=== PATIENT | male | born 1985 | race Caucasian/White ===

== ENCOUNTER 2020-06-21 12:07 | Outpatient (REF) | payer MEDICAID, SELFPAY ==
[2020-06-21 15:41] LABS: HCT 43.8 % (40.0-50.0); HGB 15.4 g/dL (13.5-17.5); MCH 29.5 pg (27.0-33.0); MCHC 35.2 % (32.0-36.0); MCV 83.9 fL (80-95); Platelet Count 202 10^3/uL (130-400); RBC 5.22 10^6/uL (4.36-5.78); RDW 11.8 % (11.8-14.1); RDW-SD 35.5 fL; WBC 10.89 10^3/uL (4.4-10.8)
[2020-06-21 15:50] LABS: BUN 9 mg/dL (7-18); CREATININE 0.8 mg/dL (0.70-1.30); Calcium 8.8 mg/dL (8.5-10.1); Chloride 103 mmol/L (98-107); Cholesterol 176 mg/dL (<200); Glucose 110 mg/dL (74-106); HDL Cholesterol 26 mg/dL (40-60); Magnesium 1.7 mg/dL (1.8-2.4); Potassium 3.7 mmol/L (3.5-5.1); Sodium 141 mmol/L (136-145); TSH 2.01 uIU/mL (0.36-3.74); Triglyceride 462 mg/dL (<150)
[2020-06-21 16:04] LABS: LDL CHOLESTEROL 91 mg/dL (<100)
[2020-06-27 13:03] LABS: Methylphenidate 648 ng/mL; Ritalinic Acid >10000 ng/mL
== END 2020-06-21 12:08 | disposition home or self-care (01) ==
LOC: NCHCN 12:07
PROVIDERS: PCP Physician Assistant; Visit Provider Nurse Practitioner Family
DX: F90.9 Attention-deficit hyperactivity disorder, unspecified type (principal); Z51.81 Encounter for therapeutic drug level monitoring; Z13.220 Encounter for screening for lipoid disorders; Z13.29 Encounter for screening for other suspected endocrine disorder; Z00.00 Encounter for general adult medical examination without abnormal findings
CPT/HCPCS: 80048; 80061; 80360; 83721; 85027; 83735; 84443

== ENCOUNTER 2021-12-25 16:21 | Outpatient (REF) | payer MEDICAID, SELFPAY ==
[2021-12-30 15:25] LABS: Methylphenidate 344 ng/mL (Cutoff: 10); Ritalinic Acid 11589 ng/mL (Cutoff: 50)
== END 2021-12-25 16:22 | disposition home or self-care (01) ==
LOC: NCHCN 16:21
PROVIDERS: PCP Nurse Practitioner Family; Visit Provider Nurse Practitioner Family
DX: F90.9 Attention-deficit hyperactivity disorder, unspecified type (principal)
CPT/HCPCS: 80360

== ENCOUNTER 2022-11-29 13:15 | Outpatient (REF) | payer MEDICAID, SELFPAY ==
--- OUTSIDE RECORDS SUMMARY | 2022-11-29 13:17 | XMS_ITS | Continuity of Care Document ---
Author Name Unknown Organization [facility] Address [address] [place] [address] Encounter [facility] Date(s): 08/28/22 - 08/28/[address] [facility] [address] [place] [address] Encounter Diagnosis Right-sided back pain(Discharge Diagnosis) - 08/28/22 Discharge Disposition: Home or Self Care Attending Physician: Mikey Arnold MD Admitting Physician: Mikey Arnold MD Allergies, Adverse Reactions, Alerts Substance Reaction Severity Status sulfa drugs Unknown Active Functional Status 08/28/22 Family Member Travel History No recent t ravel Recent Travel History No recent travel Other exposure to Infectious Disease Non e Medications !-Armstrong 5 mg-325 mg oral tablet 1 tab, Oral, every 4 hr, PRN as needed for pain, X 2 days, # 5 tab, 0 Refill(s), 08/30/22 16:05:00 EDT, Pharmacy: [id number], 185, cm, 08/28/22 13:07:00 EDT, Height/Length Dosing, 93, kg, 08/28/22 13:07:00 EDT, Weight Dosing Start Date: 08/28/22 Stop Date: 08/30/22 Status: Ordered !-Robaxin 500 mg oral tablet 1,000 mg = 2 tab, Oral, QID, X 10 days, # 80 tab, 0 Refill(s), 09/05/22 18:13:00 EDT, Pharmacy: [id number], 185, cm, 08/26/22 15:57:00 EDT, Height/Length Dosing, 93, kg, 08/26/22 15:57:00 EDT,Weight Dosing Start Date: 08/26/22 Stop Date: 09/05/22 Status: Ordered Medrol Dosepak 4 mg oral tablet 1 packets, Oral, Daily, as directed on package labeling, X 6 days, # 21 tab, 0 Refill(s), 09/01/22 18:12:00 EDT, Pharmacy: [id number], 185, cm, 08/26/22 15:57:00 EDT, Height/Length Dosing, 93,kg, 08/26/22 15:57:00 EDT, Weight Dosing Start Date: 08/26/22 Stop Date: 09/01/22 Status: Ordered Ritalin 20 mg oral tablet 20 mg = 1 tab, Oral, TID, 0 Refill(s) Start Date: 11/15/21 Status: Ordered Results Laboratory List Name Date Urinalysis with Micro if Indicated and C ulture if Indicated 08/28/22 CBC w/ Diff 08/28/22 Comprehensive Metabolic Panel 08/28/22 Lipase Level 08/28/22 Automated Diff 08/28/22 Most recent to oldest [Reference Range]: 1 WBC [5.0-10.0 x10^3/mcL] 14.3 x10^3/mcL *HI* (08/28/22 1:27 PM) RBC [4.6-6.0 x10^6/mcL] 5.0 x10^6/mcL (08/28/22 1:27 PM) Neutro Auto [40.0-75.0 %] 69.2 % (08/28/22 1:27 PM) Lymph Auto [20.0-50.0 %] 21.3 % (08/28/22 1:27 PM) [place] Auto [2.0-15.0 %] 8.3 % (08/28/22 1:27 PM) Basophil Auto [0.0-1.0 %] 0.1 % (08/28/22 1:27 PM) BUN [7-18 mg/dL] 14 mg/dL (08/28/22 1:27 PM) UA Color Yellow (08/28/22 2:13 PM) Glucose Level [74-106 mg/dL] 94 mg/dL (08/28/22 1:27 PM) Potassium Level [3.5-5.1 mmol/L] 3.6 mmo l/L (08/28/22 1:27 PM) MCV [80.0-96.0 fL] 85.7 fL (08/28/22 1:27 PM) UA Urobilinogen Normal (08/28/22 2:13 PM) UA Bili [Negative] Negative (08/28/22 2:13 PM) UA Ketones Negative (08/28/22 2:13 PM) AST [15-37 unit/L] 20 unit/L (08/28/22 1:27 PM) ALT [16-63 unit/L] 43 unit/L (08/28/22 1:27 PM) MCHC [31.0-35.0 g/dL] 35.0 g/dL (08/28/22 1: PM) Sodium Level [136-145 mmol/L] 140 mmol/L (08/28/22 1: PM) UA Leuk Est Negative (08/28/22 2:13 PM) UA Nitrite Negative (08/28/22 2:13 PM) UA Glucose [Negative] Negative (08/28/22 2: PM) Hct [41.0-51.0 %] 43.2 % (08/28/22: PM) Lipase Level [16-77 unit/L] 27 unit/L (08/28/22: PM) Calcium Level [8.5-10.1 mg/dL] 9.1 mg/dL (08/28/22 1: PM) Albumin Level [3.4-5.0 g/dL] 4.1 g/dL (08/28/22 1: PM) Protein Total [6.4-8.2 g/dL] 7.6 g/dL (08/28/22 1:27 PM) UA Protein Negative (08/28/22 2:13 PM) MCH [26.0-32.0 pg] 30.0 pg (08/28/22: PM) Neutro Absolute 9.9 x10^3/mcL *NA* (08/28/22 1: PM) Bilirubin Total [0.2-1.0 mg/dL] 0.5 mg/d L (08/28/22 1:27 PM) Hgb [14.0-18.0 g/dL] 15.1 g/dL (08/28/22 1:27 PM) Alk Phos [46-146 unit/L] 87 unit/L (08/28/22 1:27 PM) UA Blood Negative (08/28/22 2:13 PM) UA Spec Grav 1.020 *NA* (08/28/22 2:13 PM) Platelets [130-450 x10^3/mcL] 230 x10^3/ mcL (08/28/22 1:27 PM) CO2 [21-32 mmol/L] 30 mmol/L (08/28/22 1:27 PM) UA pH 6.5 *NA* (08/28/22 2:13 PM) eGFR Non-AA [>=60] 112 (08/28/22 1:27 PM) eGFR AA [>=60] 112 (08/28/22 1: PM) UA Appear Clear (08/28/22 2:13 PM) Chloride Level [98-107 mmol/L] 103 mmol/ L (08/28/22 1: PM) RDW-CV [11.5-17.0 %] 11.9 % (08/28/22 1: PM) Imm Gran Auto [0.0-0.9 %] 0.4 % (08/28/22 1: PM) Creatinine Level [0.70-1.30 mg/dL] 0.91 mg/dL (08/28/22 1: PM) Eos, Auto [1.0-6.0 %] 0.7 % *LOW* (08/28/22 1:27 PM) Vital Signs Most recent to oldest [Reference Range]: 1 2 3 Temperature Temporal Artery [36-38 Deg C] 36.8 Deg C (08/28/22 1:01 PM) Peripheral Pulse Rate [60-100 bpm] 70 bpm (08/28/22 3:59 PM) 75 bpm (08/28/22 2:51 PM) 76 bpm (08/28/22 1:01 PM) Respiratory Rate [12-24 br/min] 20 br/min (08/28/22 2:51 PM) 10 br/min *LOW* (08/28/22 1:01 PM) Blood Pressure [90-140/60-90 mmHg] 132/80mmHg (08/28/22 3:59 PM) 154/84mmHg *HI* (08/28/22 2:51 PM) 126/86mmHg (08/28/22 1:01 PM) Weight Dosing 93.00 kg (08/28/22 1:07 PM) Weight Estimated 93.00 kg (08/28/22 1:01 PM) Height/Length Dosing 185.000 cm (08/28/22 1:07 PM) Height/Length Estimated 185.000 cm (08/28/22 1:01 PM) Social History Social History Type Response Tobacco Never tobacco user T obacco Use:. Sex Male Hospital Discharge Instructions Patient Education 08/28/2022 15:04:21 Acute Back Pain, Adult Acute Back Pain, Adult Acute back pain is sudden and usually short-lived. It is often caused by an injury to the muscles and tissues in the back. The injury may result from: ??? A muscle, tendon, or ligament getting overstretched or torn. Ligaments are tissues that connectbones to each other. Lifting something improperly can cause a back strain. ??? Wear and tear (degeneration) of the spinal disks. Spinal disks are circular tissue that providecushioning between the bones of the spine (vertebrae). ??? Twisting motions, such as while playing sports or doing yard work. ??? A hit to the back. ??? Arthritis. You may have a physical exam, lab tests, and imaging tests to find the cause of your pain. Acute back pain usually goes away with rest and home care. Follow these instructions at home: Managing pain, stiffness, and swelling ??? Take dvoo-yxz-kbzkntw and prescription medicines only as told by your health care provider. Treatment may include medicines for pain and inflammation that are taken by mouth or applied to the skin, or muscle relaxants. ??? Your health care provider may recommend applying ice during the first 24???48 hours after your pain starts. To do this: ??? Put ice in a plastic bag. ??? Place a towel between your skin and the bag. ??? Leave the ice on for 20 minutes, 2???3 times a day. ??? Remove the ice if your skin turns bright red. This is very important. If you cannot feel pain, heat, or cold, you have a greater risk of damage to the area. ??? If directed, apply heat to the affected area as often as told by your health care provider. Usethe heat source that your health care provider recommends, such as a moist heat pack or a heating pad. ??? Place a towel between your skin and the heat source. ??? Leave the heat on for 20???30 minutes. ??? Remove the heat if your skin turns bright red. This is especially important if you are unable to feel pain, heat, or cold. You have a greater risk of getting burned. Activity ??? Do not stay in bed. Staying in bed for more than 1???2 days can delay your recovery. ??? Sit up and stand up straight. Avoid leaning forward when you sit or hunching over when you stand. ??? If you work at a desk, sit close to it so you do not need to lean over. Keep your chin tucked in. Keep your neck drawn back, and keep your elbows bent at a 90-degree angle (right angle). ??? Sit high and close to the steering wheel when you drive. Add lower back (lumbar) support to your car seat, if needed. ??? Take short walks on even surfaces as soon as you are able. Try to increase the length of time you walk each day. ??? Do not sit, drive, or cryptographic machine operator one place for more than 30 minutes at a time. Sitting or standing for long periods of time can put stress on your back. ??? Do not drive or use heavy machinery while taking prescription pain medicine. ??? Use proper lifting techniques. When you bend and lift, use positions that put less stress on your back: ??? Bend your knees. ??? Keep the load close to your body. ??? Avoid twisting. ??? Exercise regularly as told by your health care provider. Exercising helps your back heal fasterand helps prevent back injuries by keeping muscles strong and flexible. ??? Work with a physical therapist to make a safe exercise program, as recommended by your health care provider. Do any exercises as told by your physical therapist. Lifestyle ??? Maintain a healthy weight. Extra weight puts stress on your back and makes it difficult to havegood posture. ??? Avoid activities or situations that make you feel anxious or stressed. Stress and anxiety increase muscle tension and can make back pain worse. Learn ways to manage anxiety and stress, such as through exercise. General instructions ??? Sleep on a firm mattress in a comfortable position. Try lying on your side with your knees slightly bent. If you lie on your back, put a pillow under your knees. ??? Keep your head and neck in a straight line with your spine (neutral position) when using electronic equipment like smartphones or pads. To do this: ??? Raise your smartphone or pad to look at it instead of bending your head or neck to look down. ??? Put the smartphone or pad at the level of your face while looking at the screen. ??? Follow your treatment plan as told by your health care provider. This may include: ??? Cognitive or behavioral therapy. ??? Acupuncture or massage therapy. ??? Meditation or yoga. Contact a health care provider if: ??? You have pain that is not relieved with rest or medicine. ??? You have increasing pain going down into your legs or buttocks. ??? Your pain does not improve after 2 weeks. ??? You have pain at night. ??? You lose weight without trying. ??? You have a fever or chills. ??? You develop nausea or vomiting. ??? You develop abdominal pain. Get help right away if: ??? You develop new bowel or bladder control problems. ??? You have unusual weakness or numbness in your arms or legs. ??? You feel faint. These symptoms may represent a serious problem that is an emergency. Do not wait to see if the symptoms will go away. Get medical help right away. Call your local emergency services (911 in the [place] Do not drive yourself to the hospital. Summary ??? Acute back pain is sudden and usually short-lived. ??? Use proper lifting techniques. When you bend and lift, use positions that put less stress on your back. ??? Take njgp-ddd-jenczys and prescription medicines only as told by your health care provider, andapply heat or ice as told. This information is not intended to replace advice given to you by your health care provider. Make sure you discuss any questions you have with your health care provider. Document Revised: 07/07/2021 Document Reviewed: 07/07/2021 [employer] Patient Education ?? 2021 [employer]. Follow Up Care 08/28/2022 13:01:20 With:Follow up with primary care provider Address: When:24 Hours Emergency department Discharge instructions * Mikey Arnold MD: PERFORM Event Display: ED Discharge Information Authored Date: [id number] ALBERTINA WATKINS :1985 Age:37 years Sex:Male Visit Date:08/28/2022 Discharge Instructions We would like to thank you for allowing us to assist you with your healthcare needs. The following includes patient education materials and information regarding your injury/illness. Diagnosis from Today's Visit Right-sided back pain Discharge Vitals Temperature??(Temporal Artery) 98.2 ??F (36.8 ??C) Heart Rate??(Peripheral) 70 Respiratory Rate?? 20 Blood Pressure?? 132/80?? Height?? 72.83 in (185.000 cm) Weight??(Estimated) 205.06 lb (93.00 kg) Allergies sulfa drugs What to Do Next Instructions from Your Care Team Thank you for coming to the emergency department today, it has been our pleasure to take care of you. ??As we discussed, thankfully the CT on your abdomen/pelvis did not show any kidney issues??or other??problems with your internal organs. ??The??MRI of your lumbar spine did show some significant degenerative changes and we would recommend??continuing the Medrol Dosepak, muscle relaxer for this and following up with your regular doctor.?? Please return to the emergency department if you have any new or concerning symptoms including any fever, any new numbness, tingling, weakness, trouble withurine or bowel, or if you have any other symptoms or concerns. You Need to Schedule the Following Appointments Follow Up with??Follow up with primary care provider When:??Within 24 Hours You were treated today on an emergency basis; it may be clifton to contact your primary care provider to notify them of your visit today. You may have been referred to your regular doctor or a specialist, please follow up as instructed. If your condition worsens or you can't get in to see the doctor, contact the Emergency Department. Medications What How Much When Why Instructions Next Dose New HYDROcodone-acetaminophen (!- Armstrong 5 mg-325 mg oral tablet) 1 tab Oral (given by mouth) Every 4 hours as needed for as needed for pain Right-sided back pain Duration: 2 Days Pickup at [facility] Unchanged methocarbamol (!-Robaxin 500 mg oral tablet) 2 tab Oral (given by mouth) 4 times a day Acute lumbar back pain Duration: 10 Days Unchanged methylphenidate (Ritalin 20 mg oral tablet) 1 tab Oral (given by mouth) 3 times a day Unchanged methylPREDNISolone (Medrol Dosepak 4 mg oral tablet) 1 packets Oral (given by mouth) Every day Acute lumbar back pain Duration: 6 Days as directed on package labeling ?? Pharmacy Information [id number]: [address], [place] [id number] [phone] Education Materials Acute Back Pain, Adult Acute back pain is sudden and usually short-lived. It is often caused by an injury to the muscles and tissues in the back. The injury may result from: ? A muscle, tendon, or ligament getting overstretched or torn. Ligaments are tissues that connect bones to each other. Lifting something improperly can cause a back strain. ? Wear and tear (degeneration) of the spinal disks. Spinal disks are circular tissue that provide cushioning between the bones of the spine (vertebrae). ? Twisting motions, such as while playing sports or doing yard work. ? A hit to the back. ? Arthritis. You may have a physical exam, lab tests, and imaging tests to find the cause of your pain. Acute back pain usually goes away with rest and home care. Follow these instructions at home: Managing pain, stiffness, and swelling ? Take ogjh-zep-sulaqjt and prescription medicines only as told by your health care provider. Treatment may include medicines for pain and inflammation that are taken by mouth or applied to the skin, or muscle relaxants. ? Your health care provider may recommend applying ice during the first 24???48 hours after your painstarts. To do this: ? Put ice in a plastic bag. ? Place a towel between your skin and the bag. ? Leave the ice on for 20 minutes, 2???3 times a day. ? Remove the ice if your skin turns bright red. This is very important. If you cannot feel pain, heat, or cold, you have a greater risk of damage to the area. ? If directed, apply heat to the affected area as often as told by your health care provider. Use theheat source that your health care provider recommends, such as a moist heat pack or a heating pad. ? Place a towel between your skin and the heat source. ? Leave the heat on for 20???30 minutes. ? Remove the heat if your skin turns bright red. This is especially important if you are unable to feel pain, heat, or cold. You have a greater risk of getting burned. Activity ? Do not stay in bed. Staying in bed for more than 1???2 days can delay your recovery. ? Sit up and stand up straight. Avoid leaning forward when you sit or hunching over when you stand. ? If you work at a desk, sit close to it so you do not need to lean over. Keep your chin tucked in. Keep your neck drawn back, and keep your elbows bent at a 90-degree angle (right angle). ? Sit high and close to the steering wheel when you drive. Add lower back (lumbar) support to your car seat, if needed. ? Take short walks on even surfaces as soon as you are able. Try to increase the length of time you walk each day. ? Do not sit, drive, or cryptographic machine operator one place for more than 30 minutes at a time. Sitting or standing for long periods of time can put stress on your back. ? Do not drive or use heavy machinery while taking prescription pain medicine. ? Use proper lifting techniques. When you bend and lift, use positions that put less stress on your back: ? Bend your knees. ? Keep the load close to your body. ? Avoid twisting. ? Exercise regularly as told by your health care provider. Exercising helps your back heal faster andhelps prevent back injuries by keeping muscles strong and flexible. ? Work with a physical therapist to make a safe exercise program, as recommended by your health care provider. Do any exercises as told by your physical therapist. Lifestyle ? Maintain a healthy weight. Extra weight puts stress on your back and makes it difficult to have good posture. ? Avoid activities or situations that make you feel anxious or stressed. Stress and anxiety increase muscle tension and can make back pain worse. Learn ways to manage anxiety and stress, such as through exercise. General instructions ? Sleep on a firm mattress in a comfortable position. Try lying on your side with your knees slightlybent. If you lie on your back, put a pillow under your knees. ? Keep your head and neck in a straight line with your spine (neutral position) when using electronicequipment like smartphones or pads. To do this: ? Raise your smartphone or pad to look at it instead of bending your head or neck to look down. ? Put the smartphone or pad at the level of your face while looking at the screen. ? Follow your treatment plan as told by your health care provider. This may include: ? Cognitive or behavioral therapy. ? Acupuncture or massage therapy. ? Meditation or yoga. Contact a health care provider if: ? You have pain that is not relieved with rest or medicine. ? You have increasing pain going down into your legs or buttocks. ? Your pain does not improve after 2 weeks. ? You have pain at night. ? You lose weight without trying. ? You have a fever or chills. ? You develop nausea or vomiting. ? You develop abdominal pain. Get help right away if: ? You develop new bowel or bladder control problems. ? You have unusual weakness or numbness in your arms or legs. ? You feel faint. These symptoms may represent a serious problem that is an emergency. Do not wait to see if the symptoms will go away. Get medical help right away. Call your local emergency services (911 in the [place] Do not drive yourself to the hospital. Summary ? Acute back pain is sudden and usually short-lived. ? Use proper lifting techniques. When you bend and lift, use positions that put less stress on your back. ? Take xgke-ncp-iyixiga and prescription medicines only as told by your health care provider, and apply heat or ice as told. This information is not intended to replace advice given to you by your health care provider. Make sure you discuss any questions you have with your health care provider. Document Revised: 07/07/2021 Document Reviewed: 07/07/2021 [employer]vier Patient Education ?? 2021 [employer] Tests Performed Medications and Immunizations Administered Given morphine, 4 mg, IV Push morphine, 4 mg, IV Push Lab Test Name Test Result Date/Time WBC 14.3 x10^3/mcL 08/28/2022 13:27 EDT RBC 5.0 x10^6/mcL 08/28/2022 13:27 EDT Hgb 15.1 g/dL 08/28/2022 13:27 EDT Hct 43.2 % 08/28/2022 13:27 EDT MCV 85.7 fL 08/28/2022 13:27 EDT MCH 30.0 pg 08/28/2022 13:27 EDT MCHC 35.0 g/dL 08/28/2022 13:27 EDT RDW-CV 11.9 % 08/28/2022 13:27 EDT Platelets 230 x10^3/mcL 08/28/2022 13:27 EDT Neutro Auto 69.2 % 08/28/2022 13:27 EDT Lymph Auto 21.3 % 08/28/2022 13:27 EDT [place] Auto 8.3 % 08/28/2022 13:27 EDT Eos, Auto 0.7 % 08/28/2022 13:27 EDT Basophil Auto 0.1 % 08/28/2022 13:27 EDT Imm Gran Auto 0.4 % 08/28/2022 13:27 EDT Neutro Absolute 9.9 x10^3/mcL 08/28/2022 13:27 EDT Sodium Level 140 mmol/L 08/28/2022 13:27 EDT Potassium Level 3.6 mmol/L 08/28/2022 13:27 EDT Chloride Level 103 mmol/L 08/28/2022 13:27 EDT CO2 30 mmol/L 08/28/2022 13:27 EDT Alk Phos 87 unit/L 08/28/2022 13:27 EDT AST 20 unit/L 08/28/2022 13:27 EDT ALT 43 unit/L 08/28/2022 13:27 EDT BUN 14 mg/dL 08/28/2022 13:27 EDT Glucose Level 94 mg/dL 08/28/2022 13:27 EDT Creatinine Level 0.91 mg/dL 08/28/2022 13:27 EDT eGFR AA 112 08/28/2022 13:27 EDT eGFR Non-AA 112 08/28/2022 13:27 EDT Calcium Level 9.1 mg/dL 08/28/2022 13:27 EDT Protein Total 7.6 g/dL 08/28/2022 13:27 EDT Albumin Level 4.1 g/dL 08/28/2022 13:27 EDT Bilirubin Total 0.5 mg/dL 08/28/2022 13:27 EDT Lipase Level 27 unit/L 08/28/2022 13:27 EDT UA Color YELLOW. 08/28/2022 14:13 EDT UA Appear CLEAR. 08/28/2022 14:13 EDT UA Glucose NEGATIVE 08/28/2022 14:13 EDT UA Bili NEGATIVE 08/28/2022 14:13 EDT UA Ketones NEGATIVE 08/28/2022 14:13 EDT UA Spec Grav 1.020 08/28/2022 14:13 EDT UA Blood NEGATIVE 08/28/2022 14:13 EDT UA pH 6.5 08/28/2022 14:13 EDT UA Protein NEGATIVE 08/28/2022 14:13 EDT UA Urobilinogen 0.2 Uro 08/28/2022 14:13 EDT UA Nitrite NEGATIVE 08/28/2022 14:13 EDT UA Leuk Est NEGATIVE 08/28/2022 14:13 EDT Patient/Orthopaedic Doctor Signature Patient Name:ALBERTINA WATKINS I have received this information and my questions have been answered. Patient/Orthopaedic Doctor Name: Patient/Orthopaedic Doctor Signature: Relationship to Patient: Witness Name/Signature: Date: Electronically Signed on: 08/28/2022 16:06 EDTSigned by:MARITO Emergency department Note * Bianca Perez M: PERFORM Event Display: ED Notes Authored Date: [id number] * Lynda Lewis M: PERFORM Event Display: ED Notes Authored Date: [id number] Patient Care team information Care Team Personnel Name: Danni Yung Position: Nurse Member Role: ED Nurse Name: Mikey Arnold MD Position: Physician Member Role: Attending Physician Address: Address: [address] [place] [address] [place] [address] [place] Care Team Related Persons Name: LILLIAN WATKINS Address: Home [address] [facility] [place] [phone] Name: JUNE, MARIS Address: Home [address] [place], [place] [phone]
--- OUTSIDE RECORDS SUMMARY | 2022-11-29 13:17 | XMS_ITS | Continuity of Care Document ---
Author Name Unknown Organization [facility] Address [address] [place] [address] Care Team Providers Care Pitting Machine Operator Name Role Phone Jessica Kamara Primary Care Physician Encounter [facility] Date(s): 09/14/22 - 09/14/[address] [address] Discharge Disposition: Home or Self Care Attending Physician: Mikey Arnold MD Admitting Physician: Mikey Arnold MD Referring Physician: Mikey Arnold MD Allergies, Adverse Reactions, Alerts Substance Reaction Severity Status sulfa drugs Unknown Active Assessment and Plan Extracted from: Title:Clinical Document Author:Bernadine Calixto te:09/14/22 Diagnosis: Vomiting Comment: Functional Status 09/14/22 Family Member Travel History No recent t ravel Recent Travel History No recent travel Other exposure to Infectious Disease Non e Medications cyclobenzaprine 10 mg oral tablet 0 Refill(s) Start Date: 09/14/22 Status: Ordered famotidine 10 mg oral tablet 10 mg = 1 tab, Oral, BID, X 7 days, # 14 tab, 0 Refill(s), 09/21/22 11:59:00 EDT, Pharmacy: [facility], 185, cm, 09/14/22 9:40:00 EDT, Height/Length Dosing, 94, kg, 09/14/22 9:40:00 EDT, Weight Dosing Start Date: 09/14/22 Stop Date: 09/21/22 Status: Ordered HYDROcodone-acetaminophen 5 mg-325 mg oral tablet 0 Refill(s) Start Date: 09/14/22 Status: Ordered indomethacin 50 mg oral capsule 0 Refill(s) Start Date: 09/14/22 Status: Ordered Ritalin 20 mg oral tablet 20 mg = 1 tab, Oral, TID, 0 Refill(s) Start Date: 11/15/21 Status: Ordered Results Laboratory List Name Date Urinalysis with Microscopic 09/14/22 Urinalysis Microscopic 09/14/22 Lipase Level 09/14/22 Basic Metabolic Panel (BMP) 09/14/22 CBC w/ Diff 09/14/22 Automated Diff 09/14/22 Most recent to oldest [Reference Range]: 1 WBC [5.0-10.0 x10^3/mcL] 9.6 x10^3/mcL (09/14/22 10:05 AM) RBC [4.6-6.0 x10^6/mcL] 5.0 x10^6/mcL (09/14/22 10:05 AM) Neutro Auto [40.0-75.0 %] 79.9 % *HI* (09/14/22 10:05 AM) Lymph Auto [20.0-50.0 %] 13.7 % *LOW* (09/14/22 10:05 AM) Sequoyah Auto [2.0-15.0 %] 4.5 % (09/14/22 10:05 AM) Basophil Auto [0.0-1.0 %] 0.3 % (09/14/22 10:05 AM) BUN [7-18 mg/dL] 7 mg/dL (09/14/22 10:05 AM) UA Color Straw (09/14/22 12:02 PM) UA WBC [0-3] 0-3 (09/14/22 12:02 PM) Glucose Level [74-106 mg/dL] 116 mg/dL *HI* (09/14/22 10:05 AM) Potassium Level [3.5-5.1 mmol/L] 3.7 mmo l/L (09/14/22 10:05 AM) MCV [80.0-96.0 fL] 84.5 fL (09/14/22 10:05 AM) UA Urobilinogen Normal (09/14/22 12:02 PM) UA Bili [Negative] Negative (09/14/22 12:02 PM) UA Ketones Negative (09/14/22 12:02 PM) MCHC [31.0-35.0 g/dL] 34.8 g/dL (09/14/22 10:05 AM) Sodium Level [136-145 mmol/L] 138 mmol/L (09/14/22 10:05 AM) UA RBC [0-2] 0-2 (09/14/22 12:02 PM) UA Leuk Est Negative (09/14/22 12:02 PM) UA Nitrite Negative (09/14/22 12:02 PM) UA Glucose [Negative] Negative (09/14/22 12:02 PM) Hct [41.0-51.0 %] 42.0 % (09/14/22 10:05 AM) UA Bacteria None Seen /HPF (09/14/22 12: PM) Lipase Level [16-77 unit/L] 29 unit/L (09/14/22 10:30 AM) Calcium Level [8.5-10.1 mg/dL] 8.7 mg/dL (09/14/22 10:05 AM) UA Protein Negative (09/14/22: PM) MCH [26.0-32.0 pg] 29.4 pg (09/14/22 10:05 AM) Neutro Absolute 7.6 x10^3/mcL *NA* (09/14/22 10:05 AM) Hgb [14.0-18.0 g/dL] 14.6 g/dL (09/14/22 10:05 AM) UA Blood Negative (09/14/22 12:02 PM) UA Mucous None Seen /HPF (09/14/22 12:02 PM) UA Spec Grav <=1.005 *NA* (09/14/22 12:02 PM) Platelets [130-450 x10^3/mcL] 192 x10^3/ mcL (09/14/22 10:05 AM) CO2 [21-32 mmol/L] 27 mmol/L (09/14/22 10:05 AM) UA Squam Epithelial [None Seen] None See n (09/14/22 12:02 PM) UA pH 7.0 *NA* (09/14/22 12:02 PM) eGFR Non-AA [>=60] 111 (09/14/22 10:05 AM) eGFR AA [>=60] 111 (09/14/22 10:05 AM) UA Appear Clear (09/14/22 12:02 PM) Chloride Level [98-107 mmol/L] 103 mmol/ L (09/14/22 10:05 AM) RDW-CV [11.5-14.5 %] 11.5 % (09/14/22 10:05 AM) Imm Gran Auto [0.0-0.9 %] 0.4 % (09/14/22 10:05 AM) UA Culture Ind?. Not Applicable (09/14/22 12:02 PM) Creatinine Level [0.70-1.30 mg/dL] 0.92 mg/dL (09/14/22 10:05 AM) Eos, Auto [1.0-6.0 %] 1.2 % (09/14/22 10:05 AM) Vital Signs Most recent to oldest [Reference Range]: 1 2 Temperature Temporal Artery [36-38 Deg C ] 36.6 Deg C (09/14/22 12:41 PM) 36.2 Deg C (09/14/22 9:47 AM) Temperature Temporal Artery (DegF) [97.3-100 Deg F] 97.88 Deg F (09/14/22 12:41 PM) Peripheral Pulse Rate [60-100 bpm] 69 bp m (09/14/22 12:41 PM) 67 bpm (09/14/22 9:32 AM) Respiratory Rate [12-24 br/min] 16 br/mi n (09/14/22 12:41 PM) 20 br/min (09/14/22 9:32 AM) Blood Pressure [90-140/60-90 mmHg] 132/9 0mmHg (09/14/22 12:41 PM) 135/88mmHg (09/14/22 9:32 AM) Weight 94.00 kg (09/14/22 9:32 AM) Weight Dosing 94.00 kg (09/14/22 9:40 AM) Height 185.000 cm (09/14/22 9:32 AM) Height/Length Dosing 185.000 cm (09/14/22 9:40 AM) Body Mass Index 27.000 kg/m2 (09/14/22 9:32 AM) Social History Social History Type Response Tobacco Never tobacco user T obacco Use:. Sex Male Physician Emergency department Note * George Chavis MD: PERFORM Event Display: ED Note Physician Authored Date: [id number] ALBERTINA WATKINS :1985 Age:37 years Sex:Male Visit Date:09/14/2022 Primary Care Physician: Jessica Kamara NP Basic Information Time Seen: George Chavis MD / 09/14/2022 09:55 Chief Complaint N/V/D since 0000 last night, unable to keep anything down. Started on new medication 09/10/22, INDOMETHACINI havent felt right since I started taking this medication History Of Present Illness: presenting concern??is vomiting. ??Time of onset is 10 hours prior to admission.?? Context is patient with chronic back pain treated with hydrocodone, cyclobenzaprine, indomethacin. ??Patient has been taking indomethacin??x2 days. ??On the first day he had upset stomach??the second day??he began vomiting.?? Patient's primary healthcare provider is at the [facility]. Review of Systems: Review of systems is negative for other??acute symptoms. ??Denies abdominal pain. ??Does have vomiting, nausea, diarrhea. Physical Exam Vitals & Measurements T:??36.2?C ??(Temporal Artery)?? HR:??67??(Peripheral)?? RR:??20?? BP:??135/88?? SpO2:??99%?? HT:??185.000??cm?? WT:??94.00??kg?? BMI:??27.000?? Pain Score:??3?? O2 Therapy:??Room air?related to degenerative disc disease.Patient has difficulty moving, sitting up, and??bed secondary to chronic back pain??routine physical exam??is negative except for tenderness over the lumbar spine. Medical Decision Making: Discussed with office of primary care provider.Problem complexity is low. ??Data complexity is low.?? Risk of management are low. ??[facility] [place] [address]. Procedure No Qualifying Data Assessment/Plan Ordered: famotidine 10 mg oral tablet, 10 mg = 1 tab, Oral, BID, X 7 days, # 14 tab, 0 Refill(s), 09/21/22 11:59:00 EDT, Pharmacy: [id number], 185, cm, 09/14/22 9:40:00 EDT, Height/Length Dosing, 94, kg, 09/14/22 9:40:00 EDT, Weight Dosing Discharge Patient, 09/14/22 12:32:00 EDT, Home Independently, Constant Indicator Discharge diagnosis is adverse drug reaction??to??indomethacin??with??vomiting and diarrhea. Medication Reconciliation New Prescription famotidine (famotidine 10 mg oral tablet)1 tab Oral (given by mouth) 2 times a day for 7 Days. Refills: 0. ?? Unchanged cyclobenzaprine (cyclobenzaprine 10 mg oral tablet) ?? HYDROcodone-acetaminophen (HYDROcodone-acetaminophen 5 mg-325 mg oral tablet) ?? indomethacin (indomethacin 50 mg oral capsule) ?? methylphenidate (Ritalin 20 mg oral tablet)1 tab Oral (given by mouth) 3 times a day. Problem List/Past Medical History Ongoing No qualifying data Historical No qualifying data Medication Administration Given 0.9% NaCl bolus, 1000 mL, IV Piggyback acetaminophen, 1000 mg, IV Piggyback ondansetron, 4 mg, IV Push Protonix, 40 mg, IV Push Allergies sulfa drugs Social History Alcohol Current, 1-2 times per month Electronic Cigarette/Vaping Electronic Cigarette Use: Never. Substance Use Marijuana Tobacco Never tobacco user Tobacco Use:. Lab Results CBC and Differential?? LATEST RESULTS?? HISTORICAL RESULTS?? WBC?? 09/14/22 10:05?? 9.6?? 08/28/22?? 14.3 ??High?? RBC?? 09/14/22 10:05?? 5.0?? 08/28/22?? 5.0?? Hgb?? 09/14/22 10:05?? 14.6?? 08/28/22?? 15.1?? Hct?? 09/14/22 10:05?? 42.0?? 08/28/22?? 43.2?? MCV?? 09/14/22 10:05?? 84.5?? 08/28/22?? 85.7?? MCH?? 09/14/22 10:05?? 29.4?? 08/28/22?? 30.0?? MCHC?? 09/14/22 10:05?? 34.8?? 08/28/22?? 35.0?? RDW-CV?? 09/14/22 10:05?? 11.5?? 08/28/22?? 11.9?? Platelets?? 09/14/22 10:05?? 192?? 08/28/22?? 230?? Neutro Auto?? 09/14/22 10:05?? 79.9 ??High?? 08/28/22?? 69.2?? Lymph Auto?? 09/14/22 10:05?? 13.7 ??Low?? 08/28/22?? 21.3?? Sequoyah Auto?? 09/14/22 10:05?? 4.5?? 08/28/22?? 8.3?? Eos, Auto?? 09/14/22 10:05?? 1.2?? 08/28/22?? 0.7 ??Low?? Basophil Auto?? 09/14/22 10:05?? 0.3?? 08/28/22?? 0.1?? Imm Gran Auto?? 09/14/22 10:05?? 0.4?? 08/28/22?? 0.4?? Neutro Absolute?? 09/14/22 10:05?? 7.6?? 08/28/22?? 9.9? Routine Chemistry?? LATEST RESULTS?? HISTORICAL RESULTS?? Sodium Level?? 09/14/22 10:05?? 138?? 08/28/22?? 140?? Potassium Level?? 09/14/22 10:05?? 3.7?? 08/28/22?? 3.6?? Chloride Level?? 09/14/22 10:05?? 103?? 08/28/22?? 103?? CO2?? 09/14/22 10:05?? 27?? 08/28/22?? 30?? BUN?? 09/14/22 10:05?? 7?? 08/28/22?? 14?? Glucose Level?? 09/14/22 10:05?? 116 ??High?? 08/28/22?? 94?? Creatinine Level?? 09/14/22 10:05?? 0.92?? 08/28/22?? 0.91?? eGFR AA?? 09/14/22 10:05?? 111?? 08/28/22?? 112?? eGFR Non-AA?? 09/14/22 10:05?? 111?? 08/28/22?? 112?? Calcium Level?? 09/14/22 10:05?? 8.7?? 08/28/22?? 9.1?? Lipase Level?? 09/14/22 10:30?? 29?? 08/28/22?? 27? UA Macroscopic?? LATEST RESULTS?? HISTORICAL RESULTS?? UA Color?? 09/14/22 12:02?? Straw?? 08/28/22?? Yellow?? UA Appear?? 09/14/22 12:02?? Clear?? 08/28/22?? Clear?? UA Glucose?? 09/14/22 12:02?? Negative?? 08/28/22?? Negative?? UA Bili?? 09/14/22 12:02?? Negative?? 08/28/22?? Negative?? UA Ketones?? 09/14/22 12:02?? Negative?? 08/28/22?? Negative?? UA Spec Grav?? 09/14/22 12:02?? <=1.005?? 08/28/22?? 1.020?? UA Blood?? 09/14/22 12:02?? Negative?? 08/28/22?? Negative?? UA pH?? 09/14/22 12:02?? 7.0?? 08/28/22?? 6.5?? UA Protein?? 09/14/22 12:02?? Negative?? 08/28/22?? Negative?? UA Urobilinogen?? 09/14/22 12:02?? Normal?? 08/28/22?? Normal?? UA Nitrite?? 09/14/22 12:02?? Negative?? 08/28/22?? Negative?? UA Leuk Est?? 09/14/22 12:02?? Negative?? 08/28/22?? Negative?? UA Culture Ind?.?? 09/14/22 12:02?? Not Applicable? UA Microscopic?? LATEST RESULTS?? UA WBC?? 09/14/22 12:02?? 0-3?? UA RBC?? 09/14/22 12:02?? 0-2?? UA Squam Epithelial?? 09/14/22 12:02?? None Seen?? UA Mucous?? 09/14/22 12:02?? None Seen?? UA Bacteria?? 09/14/22 12:02?? None Seen? Electronically Signed on 09/14/22 12:32 PM George Chavis MD Emergency department Discharge instructions * George Chavis MD: PERFORM Event Display: ED Discharge Information Authored Date: [id number] ALBERTINA WATKINS :1985 Age:37 years Sex:Male Visit Date:09/14/2022 Primary Care Physician: Jessica Kamara NP Discharge Instructions We would like to thank you for allowing us to assist you with your healthcare needs. The following includes patient education materials and information regarding your injury/illness. Discharge Vitals Temperature??(Temporal Artery) 97.2 ??F (36.2 ??C) Heart Rate??(Peripheral) 67 Respiratory Rate?? 20 Blood Pressure?? 135/88?? Height?? 72.83 in (185.000 cm) Weight?? 207.27 lb (94.00 kg) BMI?? 27.000 Allergies sulfa drugs What to Do Next Instructions from Your Care Team Your vomiting and diarrhea are most likely related to the indomethacin.?? Stop the indomethacin. ??Take famotidine??twice daily??for 1 week to??settle your stomach.?? Follow-up with your primary careprovider.?? If you do resume using ibuprofen??be sure to take it with food. ?? George Chavis MD You were treated today on an emergency [...] Emergency Department. Medications What How Much When Instructions Next Dose New famotidine (famotidine 10 mg oral tablet) 1 tab Oral (given by mouth) 2 times a day Duration: 7 Days Pickup at [email or web address] Unchanged cyclobenzaprine (cyclobenzaprine 10 mg oral tablet) Unchanged HYDROcodone-acetaminophen (HYDROcodone-acetaminophen 5 mg-325 mg oral tablet) Unchanged indomethacin (indomethacin 50 mg oral capsule) Unchanged methylphenidate (Ritalin 20 mg oral tablet) 1 tab Oral (given by mouth) 3 times a day Pharmacy Information [facility]: [address] [place], [place] [id number] [phone] Tests Performed Medications and Immunizations Administered Given 0.9% NaCl bolus, 1000 mL, IV Piggyback acetaminophen, 1000 mg, IV Piggyback ondansetron, 4 mg, IV Push Protonix, 40 mg, IV Push Lab Test Name Test Result Date/Time WBC 9.6 x10^3/mcL 09/14/2022 10:05 EDT RBC 5.0 x10^6/mcL 09/14/2022 10:05 EDT Hgb 14.6 g/dL 09/14/2022 10:05 EDT Hct 42.0 % 09/14/2022 10:05 EDT MCV 84.5 fL 09/14/2022 10:05 EDT MCH 29.4 pg 09/14/2022 10:05 EDT MCHC 34.8 g/dL 09/14/2022 10:05 EDT RDW-CV 11.5 % 09/14/2022 10:05 EDT Platelets 192 x10^3/mcL 09/14/2022 10:05 EDT Neutro Auto 79.9 % 09/14/2022 10:05 EDT Lymph Auto 13.7 % 09/14/2022 10:05 EDT Sequoyah Auto 4.5 % 09/14/2022 10:05 EDT Eos, Auto 1.2 % 09/14/2022 10:05 EDT Basophil Auto 0.3 % 09/14/2022 10:05 EDT Imm Gran Auto 0.4 % 09/14/2022 10:05 EDT Neutro Absolute 7.6 x10^3/mcL 09/14/2022 10:05 EDT Sodium Level 138 mmol/L 09/14/2022 10:05 EDT Potassium Level 3.7 mmol/L 09/14/2022 10:05 EDT Chloride Level 103 mmol/L 09/14/2022 10:05 EDT CO2 27 mmol/L 09/14/2022 10:05 EDT BUN 7 mg/dL 09/14/2022 10:05 EDT Glucose Level 116 mg/dL 09/14/2022 10:05 EDT Creatinine Level 0.92 mg/dL 09/14/2022 10:05 EDT eGFR AA 111 09/14/2022 10:05 EDT eGFR Non-AA 111 09/14/2022 10:05 EDT Calcium Level 8.7 mg/dL 09/14/2022 10:05 EDT Lipase Level 29 unit/L 09/14/2022 10:30 EDT UA Color STRAW. 09/14/2022 12:02 EDT UA Appear CLEAR. 09/14/2022 12:02 EDT UA Glucose NEGATIVE 09/14/2022 12:02 EDT UA Bili NEGATIVE 09/14/2022 12:02 EDT UA Ketones NEGATIVE 09/14/2022 12:02 EDT UA Spec Grav <=1.005 09/14/2022 12:02 EDT UA Blood NEGATIVE 09/14/2022 12:02 EDT UA pH 7.0 09/14/2022 12:02 EDT UA Protein NEGATIVE 09/14/2022 12:02 EDT UA Urobilinogen 0.2 Uro 09/14/2022 12:02 EDT UA Nitrite NEGATIVE 09/14/2022 12:02 EDT UA Leuk Est NEGATIVE 09/14/2022 12:02 EDT UA Culture Ind?. Not Applicable 09/14/2022 12:02 EDT UA WBC 0-3 09/14/2022 12:02 EDT UA RBC 0-2 09/14/2022 12:02 EDT UA Squam Epithelial None Seen 09/14/2022 12:02 EDT UA Mucous None Seen 09/14/2022 12:02 EDT UA Bacteria None Seen 09/14/2022 12:02 EDT Patient/Recovery Coach Signature Patient Name:ALBERTINA WATKINS I have received this information and my questions have been answered. Patient/Recovery Coach Name: Patient/Recovery Coach Signature: Relationship to Patient: Witness Name/Signature: Date: Electronically Signed on: 09/14/2022 12:32 EDTSigned by:[facility] Discharge summary * Bernadine Calixto: PERFORM Event Display: Discharge Note Authored Date: [id number] * Bernadine Calixto: PERFORM Event Display: Discharge Note Authored Date: [id number] Diagnosis: Vomiting Comment: Electronically Signed on 09/14/22 12:59 PM Bernadine Calixto Patient Care team information Care Team Personnel Name: Jessica Kamara NP Position: No Access Member Role: Informed Provider Address: Address: [facility] [address] [place], [place] [address] Name: Berkley [place] Position: Nurse Member Role: ED Nurse Name: George Chavis MD Position: Physician Member Role: ED Physician Address: Address: [address] [place] [id number] Care Team Related Persons Name: LILLIAN WATKINS Address: Home [address] [facility] [id number] Name: MARIS WATKINS Address: Home [address] [place], [place] [id number]
--- OUTSIDE RECORDS SUMMARY | 2022-11-29 13:17 | XMS_ITS | Continuity of Care Document ---
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 Machine Operator Name Role Phone Nguyễn Kamaraa Primary Care Physician Encounter [facility] Date(s): 08/26/22 - 08/26/[address] [address] Encounter Diagnosis Acute lumbar back pain(Discharge Diagnosis) - 08/26/22 Attending Physician: Mikey Arnold MD Admitting Physician: Mikey Arnold MD Allergies, Adverse Reactions, Alerts Substance Reaction Severity Status sulfa drugs Unknown Active Functional Status 08/26/22 Family Member Travel History No recent t ravel Recent Travel History No recent travel Other exposure to Infectious Disease Non e Medications !-Robaxin 500 mg oral tablet 1,000 mg = 2 tab, Oral, QID, X 10 days, # 80 tab, 0 Refill(s), 09/05/22 18:13:00 EDT, Pharmacy: [facility], 185, cm, 08/26/22 15:57:00 EDT, Height/Length Dosing, 93, kg, 08/26/22 15:57:00 EDT,Weight Dosing Start Date: 08/26/22 Stop Date: 09/05/22 Status: Ordered Medrol Dosepak 4 mg oral tablet 1 packets, Oral, Daily, as directed on package labeling, X 6 days, # 21 tab, 0 Refill(s), 09/01/22 18:12:00 EDT, Pharmacy: [facility], 185, cm, 08/26/22 15:57:00 EDT, Height/Length Dosing, 93,kg, 08/26/22 15:57:00 EDT, Weight Dosing Start Date: 08/26/22 Stop Date: 09/01/22 Status: Ordered Ritalin 20 mg oral tablet 20 mg = 1 tab, Oral, TID, 0 Refill(s) Start Date: 11/15/21 Status: Ordered Vital Signs Most recent to oldest [Reference Range]: 1 Temperature Temporal Artery [36-38 Deg C ] 36.6 Deg C (08/26/22 3:53 PM) Peripheral Pulse Rate [60-100 bpm] 92 bp m (08/26/22 3:53 PM) Respiratory Rate [12-24 br/min] 18 br/mi n (08/26/22 3:53 PM) Blood Pressure [90-140/60-90 mmHg] 110/9 2mmHg (08/26/22 3:53 PM) Weight Dosing 93.00 kg (08/26/22 3:57 PM) Weight Estimated 93.00 kg (08/26/22 3:53 PM) Height/Length Dosing 185.000 cm (08/26/22 3:57 PM) Height/Length Estimated 185.000 cm (08/26/22 3:53 PM) Social History Social History Type Response Tobacco Never tobacco user T obacco Use:. Sex Male Hospital Discharge Instructions Patient Education 08/26/2022 17:12:11 Acute Back Pain, Adult Acute Back Pain, [...] Managing pain, stiffness, and swelling ??? Take uval-jfv-gfcxqtk and prescription medicines only as told by [...] day. ??? Do not sit, drive, or information scientist one place for more than 30 minutes [...] less stress on your back. ??? Take yttd-gko-uorelnb and prescription medicines only as told by your health care provider, andapply heat or ice as told. This information is not intended to replace advice given to you by your health care provider. Make sure you discuss any questions you have with your health care provider. Document Revised: 07/07/2021 Document Reviewed: 07/07/2021 [employer] Patient Education ?? 2021 [employer]. Follow Up Care 08/26/2022 15:53:10 With:Jessica Kamara NP Address: [address] When:2 to 4 days Emergency department Discharge instructions * Mikey Arnold MD: PERFORM Event Display: ED Discharge Information Authored Date: [id number] ALBERTINA WATKINS :1985 Age:37 years Sex:Male Visit Date:08/26/2022 Primary Care Physician: Jessica Kamara NP Discharge Instructions We would like to thank you for allowing us to assist you with your healthcare needs. The following includes patient education materials and information regarding your injury/illness. Diagnosis from Today's Visit Acute lumbar back pain Discharge Vitals Temperature??(Temporal Artery) 97.9 ??F (36.6 ??C) Heart Rate??(Peripheral) 92 Respiratory Rate?? 18 Blood Pressure?? 110/92?? Height?? 72.83 in (185.000 cm) Weight??(Estimated) 205.06 lb (93.00 kg) Allergies sulfa drugs What to Do Next Instructions from Your Care Team Thank you for coming to the emergency department today, who has??been our pleasure to take care of you.?? The x-rays on your low back thankfully did not show any obvious bony issues. ??We have ordered an MRI for you??to further evaluate the spinal cord and nerve roots.?You may use the prescribed??Medrol Dosepak??in addition to the Robaxin/methocarbamol to help with symptoms. ??Please keep yourfollow-up appointment with primary care on Saturday for recheck. ??Please return to the emergency department if you have any new or concerning symptoms including any new or worsening pain, abdominalpain, new numbness, tingling, weakness,??fever, leaking of urine??or inability to urinate, leaking of stool or trouble moving your bowels, or if you have any other symptoms that concern you. You Need to Schedule the Following Appointments Follow Up with??Jessica Kamara NP When:??Within 2 to 4 days Where: [address] [address]- You were treated today on an emergency [...] Much When Why Instructions Next Dose New methocarbamol (!-Robaxin 500 mg oral tablet) 2 tab Oral (given by mouth) 4 times a day Acute lumbar back pain Duration: 10 Days Pickup at [facility] New methylPREDNISolone (Medrol Dosepak 4 mg oral tablet) 1 packets Oral (given by mouth) Every day Acute lumbar back pain Duration: 6 Days as directed on package labeling ?? Pickup at [facility] Unchanged methylphenidate (Ritalin 20 mg oral tablet) 1 tab Oral (given by mouth) 3 times a day Pharmacy Information [facility]: [address] [place], [place] [id number] [phone] Education Materials Acute Back Pain, Adult Acute [...] Managing pain, stiffness, and swelling ? Take zxsx-ndf-mtjvmwa and prescription medicines only as told by [...] day. ? Do not sit, drive, or information scientist one place for more than 30 minutes [...] less stress on your back. ? Take amct-ncx-awbtcyz and prescription medicines only as told by your health care provider, and apply heat or ice as told. This information is not intended to replace advice given to you by your health care provider. Make sure you discuss any questions you have with your health care provider. Document Revised: 07/07/2021 Document Reviewed: 07/07/2021 [employer] Patient Education ?? 2021 [employer] Tests Performed Medications and Immunizations Administered Given Robaxin, 1000 mg, Oral Toradol, 30 mg, IM Patient/Top And Seat Cover Fitter Signature Patient Name:ALBERTINA WATKINS Kim I have received this information and my questions have been answered. Patient/Top And Seat Cover Fitter Name: Patient/Top And Seat Cover Fitter Signature: Relationship to Patient: Witness Name/Signature: Date: Electronically Signed on: 08/26/2022 18:19 EDTSigned by:MARITO Emergency department Note * Myah Terrell: PERFORM Event Display: ED Notes Authored Date: [id number] * Myah Terrell: PERFORM Event Display: ED Notes Authored Date: [id number] Patient Care team information Care Team Personnel Name: Jessica Kamara NP Position: No Access Member Role: Primary Care Physician Address: Address: [address] Name: Danni Yung Position: Nurse Member Role: ED Nurse Name: Mikey Arnold MD Position: Physician Member Role: Attending Physician Address: Address: [address] [place] [address] [place] [address] [place] Care Team Related Persons Name: LILLIAN WATKINS Address: Home [address] [facility] [id number] Name: MARIS WATKINS Address: Home [address] [place], [place] [id number]
--- OUTSIDE RECORDS SUMMARY | 2022-11-29 13:17 | XMS_ITS | Continuity of Care Document ---
Author Name Unknown Organization [facility] Address [address] [place] [address] Encounter [id number] Date(s): 08/27/22 - 08/27/22 [facility] [address] [place] [address] Discharge Disposition: Home or Self Care Attending Physician: Mikey Arnold MD Admitting Physician: Mikey Arnold MD Referring Physician: Mikey Arnold MD Allergies, Adverse Reactions, Alerts Substance Reaction Severity Status sulfa drugs Unknown Active Medications !-Robaxin 500 mg oral tablet 1,000 mg = 2 tab, Oral, QID, X 10 days, # 80 tab, 0 Refill(s), 09/05/22 18:13:00 EDT, Pharmacy: [id number], 185, cm, 08/26/22 15:57:00 EDT, Height/Length Dosing, 93, kg, 08/26/22 15:57:00 EDT,Weight Dosing Start Date: 08/26/22 Stop Date: 09/05/22 Status: Ordered Medrol Dosepak 4 mg oral tablet 1 packets, Oral, Daily, as directed on package labeling, X 6 days, # 21 tab, 0 Refill(s), 09/01/22 18:12:00 EDT, Pharmacy: [facility], 185, cm, 08/26/22 15:57:00 EDT, Height/Length Dosing, 93,kg, 08/26/22 15:57:00 EDT, Weight Dosing Start Date: 08/26/22 Stop Date: 09/01/22 Status: Ordered Ritalin 20 mg oral tablet 20 mg = 1 tab, Oral, TID, 0 Refill(s) Start Date: 11/15/21 Status: Ordered Social History Social History Type Response Tobacco Never tobacco user T obacco Use:. Sex Male Patient Care team information Care Team Related Persons Name: JUNELILLIAN Address: [address] [facility] [id number] Name: JUNE MARIS Address: Home [address] [place], [place] [id number]
[2022-12-06 14:34] LABS: Methylphenidate 86 ng/mL (Cutoff: 10); Ritalinic Acid 2541 ng/mL (Cutoff: 50)
== END 2022-11-29 13:16 | disposition home or self-care (01) ==
LOC: NCHCN 13:15
PROVIDERS: PCP Nurse Practitioner Family; Visit Provider Nurse Practitioner Family
DX: F90.8 Attention-deficit hyperactivity disorder, other type (principal); Z51.81 Encounter for therapeutic drug level monitoring; Z79.899 Other long term (current) drug therapy
CPT/HCPCS: 80360